=== PATIENT | female | born 1980 | race Caucasian/White ===

== ENCOUNTER → 2024-03-14 | Outpatient (REF) | payer OTHER | LOC: US 08:48 | PROVIDERS: ATTEND Nurse Practitioner Family | DX: Z86.19 Personal history of other infectious and parasitic diseases (principal) | CPT/HCPCS: 76705 ==

== ENCOUNTER → 2024-03-26 | Day surgery (SDC) | payer OTHER ==
[~2024-03-26] MED LIST: ESTRADIOL2 MG; LIDOCAINE HCL 2% LOCAL INJ 5 ML SDV VIAL INJ ONE; PROPOFOL IV EMULSION 10 MG/ML 20 ML VIAL ONE; WELLBUTRIN XL300 MG PO
[2024-03-26] MEDS: LACTATED RINGER'S 1,000 ML ONE (13:06)
[2024-03-26 15:43] VITALS: TEMP 97.6
[2024-03-26 16:05] VITALS: BP 110/81; PULSE 76; RESP 18; O2SAT 100
== END | disposition home or self-care (01) ==
LOC: OR 05:00
PROVIDERS: ATTEND Internal Medicine Gastroenterology
DX: K62.5 Hemorrhage of anus and rectum (principal); D12.4 Benign neoplasm of descending colon; K64.4 Residual hemorrhoidal skin tags; K64.1 Second degree hemorrhoids; F17.200 Nicotine dependence, unspecified, uncomplicated; F41.9 Anxiety disorder, unspecified; F32.A Depression, unspecified; Z79.899 Other long term (current) drug therapy; Z86.19 Personal history of other infectious and parasitic diseases
CPT/HCPCS: 45380; 45385; 81025; 88305; 88312; J2001; J2704; J7121; 45378